=== PATIENT | female | born 1965 | race Caucasian/White ===

== ENCOUNTER 2019-04-27 10:23 | Emergency (ER) | payer OTHER, SELFPAY ==
[2019-04-27 10:33] VITALS: BP 143/102; PULSE 112; RESP 18; TEMP 36.8; O2SAT 98
--- NOTE | 2019-04-27 10:54 | W.ED.GENAD ---
Discharge Plan Disposition Patient Disposition: HOME Condition: Stable Discharge Details Chief Complaint: Allergic Clinical Impression: Infected insect bite of finger, Insect bite ED Provider: Eduardo Veras Home Meds and New Rx's Prescriptions: New cephalexin 500 mg tablet 500 mg PO QID 5 Days Qty: 20 RF: 0 Continued simvastatin 20 mg Tablet RF: 0 sertraline [Zoloft] 25 mg Tablet 25 mg PO DAILY RF: 0 lisinopril 5 mg Tablet 5 mg PO DAILY RF: 0 Discharge Instructions Instructions: Insect Bite or Sting (ED) Additional Instructions: On top of prescribed antibiotics for concern of infection you may use topical antibiotic ointment, and do Epson salt soaks to your finger 3 times daily for the next 3 days. You should also consider taking antihistamine such as Benadryl, Claritin, or Zyrtec to see if this also helps your symptoms. If not improving in the next 24 hours or any significant worsening of symptoms you should seek reassessment. Referrals: Primary Care Provider [Outside] (As needed for reassessment or if not improving) Medical Decision Making Patient presenting to the emergency department for chief complaint of bug bites. She states that 2 days ago she was bitten by some unknown bugs while she was sitting outside. She noticed immediately afterwards redness and some slight swelling to her right thigh, right index finger, and left ring finger. She has not taken any medications to try to help with the symptoms but today she noticed the right index finger starting to open up and have drainage. Patient denies any difficulty breathing but does state some generalized shakiness. Physical exam shows multiple areas of erythema consistent with insect bite more likely black fly due to moderate amount of swelling. The right index finger though does show open area of purulent to serosanguineous drainage. There is concern for this being an infected insect bite otherwise remainder of areas of concern more seem consistent with insect bite and histamine reaction. For these patient was recommended to take [id number] antihistamine but for infected insect bite patient placed upon Keflex for 5 days. Patient has no signs of anaphylactic reaction, no airway abnormalities, no other emergent concerns noted. return precautions discussed. After discussion of diagnosis and plan of care patient has no further needs, questions, or concerns and states clear understanding to return to the emergency department for any worsening symptoms. HPI General Mode of arrival: ambulatory. Date/Time Provider Initiated Documentation: 04/27/19 10:25. Limitations to Documentation: no limitations. Information obtained by: patient and RN notes reviewed. History of Present Illness 53 year old F presents to the emergency department with the chief complaint of Bug bites, with intensity rated at 8. Quality is described as aching, and is localized to the right (Index finger). Patient started experiencing this day(s) (2) and it has been constant. Patient did receive the following treatments prior to arrival, none Related Data Home Medications Medication Instructions Recorded Confirmed cephalexin 500 mg PO QID 5 Days #20 tab 04/27/19 lisinopril 5 mg PO DAILY 04/27/19 04/27/19 sertraline [Zoloft] 25 mg PO DAILY 04/27/19 04/27/19 simvastatin 04/27/19 Previous Rx's Medication Instructions Recorded cephalexin 500 mg PO QID 5 Days #20 tab 04/27/19 Allergies Allergy/AdvReac Type Severity Reaction Status Date / Time bee venom protein (honey bee) Allergy Anaphylaxsi Unverified 04/27/19 10:29 s General Stated Complaint: Allergic NEHEMIAS: 3 Review of Systems Constitutional Denies body ache(s), Denies fever(s) and Denies headache(s) ENT Denies headache(s) Musculoskeletal Denies myalgias, Denies arthralgias and Reports joint swelling (Right index finger, left ring finger) Integumentary/Breasts Reports as per HPI, Reports erythema and Denies rash Neurologic Denies headache(s) and Denies paresthesias FOR[facility]LY [facility], [facility] Medical History Hyperlipidemia (Chronic) Hypertension (Chronic) Social History Smoking/Tobacco Use Status: Current every day Tobacco Type: cigarettes Smoking cigarettes per day: 15 Alcohol Intake: current Alcohol Intake frequency: 0-2 drinks per day Substance use type: does not use Do you feel safe at home: Yes Do you feel safe in your relationship?: Yes Exam Const General: cooperative, comfortable and no acute distress Orientation: alert, awake and oriented x3 Resp Effort & Inspection: normal respiratory effort and able to speak in complete sentences Auscultation: clear to auscultation bilaterally Skin General skin exam: no fluctuance and no induration Rashes: no rashes Neuro General: alert, awake and oriented x3 Extrem Right upper extremity: hand (Index finger) Details: abnormal to inspection (Erythema and open drainage), normal ROM of fingers and swelling Location: of the 2nd digit Location: involving the entire digit Left upper extremity: hand Details: swelling (And erythema) Location: of the 4th digit Location: involving the entire digit Right lower extremity: hip/thigh (Anterior localized erythema without well demarcation or noted rash) Course Vital Signs Temperature 36.8 C 04/27/19 10:33 Pulse 112 H 04/27/19 10:33 Respiratory Rate 18 04/27/19 10:33 Blood Pressure 143/102 H 04/27/19 10:33 Pulse Oximetry 98 04/27/19 10:33 Temperature 36.8 C 04/27/19 10:33 Temperature Source Tympanic 04/27/19 10:33 Pulse 112 H 04/27/19 10:33 Respiratory Rate 18 04/27/19 10:33 Respiratory Effort Short of Breath 04/27/19 10:38 Respiratory Pattern Normal 04/27/19 10:38 Blood Pressure 143/102 H 04/27/19 10:33 Blood Pressure Position Sitting 04/27/19 10:33 Pulse Oximetry 98 04/27/19 10:33 Oxygen Delivery Method Room Air 04/27/19 10:33 Oxygen Flow Rate 0 04/27/19 10:33 Pain Level 8 04/27/19 10:33
--- NOTE | 2019-04-27 10:59 | ED.GENADUL_ITS ---
Discharge Plan Disposition Patient Disposition: HOME Condition: Stable Discharge Details Chief Complaint: Allergic Clinical Impression: Infected insect bite of finger, Insect bite ED Provider: Eduardo Veras Home Meds and New Rx's Prescriptions: New cephalexin 500 mg tablet 500 mg PO QID 5 Days Qty: 20 RF: 0 Continued simvastatin 20 mg Tablet RF: 0 sertraline [Zoloft] 25 mg Tablet 25 mg PO DAILY RF: 0 lisinopril 5 mg Tablet 5 mg PO DAILY RF: 0 Discharge Instructions Instructions: Insect Bite or Sting (ED) Additional Instructions: On top of prescribed antibiotics for concern of infection you may use topical antibiotic ointment, and do Epson salt soaks to your finger 3 times daily for the next 3 days. You should also consider taking antihistamine such as Benadryl, Claritin, or Zyrtec to see if this also helps your symptoms. If not improving in the next 24 hours or any significant worsening of symptoms you should seek reassessment. Referrals: Primary Care Provider [Outside] (As needed for reassessment or if not improving) Medical Decision Making Patient presenting to the emergency department for chief complaint of bug bites. She states that 2 days ago she was bitten by some unknown bugs while she was sitting outside. She noticed immediately afterwards redness and some slight swelling to her right thigh, right index finger, and left ring finger. She has not taken any medications to try to help with the symptoms but today she noticed the right index finger starting to open up and have drainage. Patient denies any difficulty breathing but does state some generalized shakiness. Physical exam shows multiple areas of erythema consistent with insect bite more likely black fly due to moderate amount of swelling. The right index finger though does show open area of purulent to serosanguineous drainage. There is concern for this being an infected insect bite otherwise remainder of areas of concern more seem consistent with insect bite and histamine reaction. For these patient was recommended to take [id number] antihistamine but for infected insect bite patient placed upon Keflex for 5 days. Patient has no signs of anaphylactic reaction, no airway abnormalities, no other emergent concerns noted. return precautions discussed. After discussion of diagnosis and plan of care patient has no further needs, questions, or concerns and states clear understanding to return to the emergency department for any worsening symptoms. HPI General Mode of arrival: ambulatory . Date/Time Provider Initiated Documentation: 04/27/19 10:25 . Limitations to Documentation: no limitations . Information obtained by: patient and RN notes reviewed . History of Present Illness 53 year old F presents to the emergency department with the chief complaint of Bug bites, with intensity rated at 8. Quality is described as aching, and is localized to the right (Index finger). Patient started experiencing this day(s) (2) and it has been constant. Patient did receive the following treatments prior to arrival, none Related Data Home Medications Medication Instructions Recorded Confirmed cephalexin 500 mg PO QID 5 Days #20 tab 04/27/19 lisinopril 5 mg PO DAILY 04/27/19 04/27/19 sertraline [Zoloft] 25 mg PO DAILY 04/27/19 04/27/19 simvastatin 04/27/19 Previous Rx's Medication Instructions Recorded cephalexin 500 mg PO QID 5 Days #20 tab 04/27/19 Allergies Allergy/AdvReac Type Severity Reaction Status Date / Time bee venom protein (honey bee) Allergy Anaphylaxsi Unverified 04/27/19 10:29 s General Stated Complaint: Allergic NEHMEIAS: 3 Review of Systems Constitutional Denies body ache(s), Denies fever(s) and Denies headache(s) ENT Denies headache(s) Musculoskeletal Denies myalgias, Denies arthralgias and Reports joint swelling (Right index finger, left ring finger) Integumentary/Breasts Reports as per HPI, Reports erythema and Denies rash Neurologic Denies headache(s) and Denies paresthesias FOR[facility]LY [facility], [facility] Medical History Hyperlipidemia (Chronic) Hypertension (Chronic) Social History Smoking/Tobacco Use Status: Current every day Tobacco Type: cigarettes Smoking cigarettes per day: 15 Alcohol Intake: current Alcohol Intake frequency: 0-2 drinks per day Substance use type: does not use Do you feel safe at home: Yes Do you feel safe in your relationship?: Yes Exam Const General: cooperative, comfortable and no acute distress Orientation: alert, awake and oriented x3 Resp Effort & Inspection: normal respiratory effort and able to speak in complete sentences Auscultation: clear to auscultation bilaterally Skin General skin exam: no fluctuance and no induration Rashes: no rashes Neuro General: alert, awake and oriented x3 Extrem Right upper extremity: hand (Index finger) Details: abnormal to inspection (Erythema and open drainage), normal ROM of fingers and swelling Location: of the 2nd digit Location: involving the entire digit Left upper extremity: hand Details: swelling (And erythema) Location: of the 4th digit Location: involving the entire digit Right lower extremity: hip/thigh (Anterior localized erythema without well demarcation or noted rash) Course Vital Signs Temperature 36.8 C 04/27/19 10:33 Pulse 112 H 04/27/19 10:33 Respiratory Rate 18 04/27/19 10:33 Blood Pressure 143/102 H 04/27/19 10:33 Pulse Oximetry 98 04/27/19 10:33 Temperature 36.8 C 04/27/19 10:33 Temperature Source Tympanic 04/27/19 10:33 Pulse 112 H 04/27/19 10:33 Respiratory Rate 18 04/27/19 10:33 Respiratory Effort Short of Breath 04/27/19 10:38 Respiratory Pattern Normal 04/27/19 10:38 Blood Pressure 143/102 H 04/27/19 10:33 Blood Pressure Position Sitting 04/27/19 10:33 Pulse Oximetry 98 04/27/19 10:33 Oxygen Delivery Method Room Air 04/27/19 10:33 Oxygen Flow Rate 0 04/27/19 10:33 Pain Level 8 04/27/19 10:33
== END 2019-04-27 11:14 | disposition home or self-care (01) ==
LOC: ER 11:05
PROVIDERS: Emergency Provider Nurse Practitioner Family
DX: S60.460A Insect bite (nonvenomous) of right index finger, initial encounter (principal); L08.89 Other specified local infections of the skin and subcutaneous tissue; S70.361A Insect bite (nonvenomous), right thigh, initial encounter; S60.465A Insect bite (nonvenomous) of left ring finger, initial encounter; W57.XXXA Bitten or stung by nonvenomous insect and other nonvenomous arthropods, initial encounter; I10 Essential (primary) hypertension; Z91.030 Bee allergy status
CPT/HCPCS: 99283